=== PATIENT | female | born 1970 ===

== ENCOUNTER 2017-09-21 06:14 | Day surgery (SDC) | payer OTHER ==
[~2017-09-21 06:14] MED LIST: VASOTEC5 MG PO
== END 2017-09-21 16:15 | disposition home or self-care (01) ==
LOC: CIR.AMB 06:14
DX: N93.8 Other specified abnormal uterine and vaginal bleeding (principal)

== ENCOUNTER 2018-02-17 09:08 | Outpatient (CLI) | payer OTHER ==
[2018-02-17] MEDS ORDERED: HYDROCHLOROTH12.5 M1 PO (09:59)
== END 2018-02-17 09:09 | disposition home or self-care (01) ==
LOC: SONOGRAMA 09:08
DX: I10 Essential (primary) hypertension (principal)

== ENCOUNTER 2018-02-18 10:15 | Inpatient (IN) | payer OTHER ==
[~2018-02-18] VITALS: Ht 157.5 cm; Wt 89.6 kg
[~2018-02-18 10:15] MED LIST changes: +HYDROCHLOROTH12.5 M1 PO
== END 2018-03-04 10:36 | disposition home or self-care (01) | DRG 743 ==
LOC: O/R 03-01 05:09 → OB/GYN 03-01 05:09 → SURH 03-01 07:00 → OB/GYN 03-01 17:13 → SURH 03-02 08:32 → OB/GYN 03-04 10:36
PROVIDERS: ADMIT Obstetrics & Gynecology
PROC: 0UB70ZZ Excision of Bilateral Fallopian Tubes, Open Approach (ICD-10-PCS; 2018-03-01)
PROC: 0UB00ZZ Excision of Right Ovary, Open Approach (ICD-10-PCS; 2018-03-01)
PROC: 0UT90ZZ Resection of Uterus, Open Approach (ICD-10-PCS; principal; 2018-03-01 07:00)
DX: D25.1 Intramural leiomyoma of uterus (principal); N39.9 Disorder of urinary system, unspecified; N72 Inflammatory disease of cervix uteri; N84.0 Polyp of corpus uteri; N80.0 Endometriosis of uterus; N83.11 Corpus luteum cyst of right ovary; I10 Essential (primary) hypertension